=== PATIENT | female | born 2000 | race African-American/Black ===

== ENCOUNTER 2019-06-01 18:16 | Inpatient (IN) ==
[2019-06-01] MEDS ORDERED: MEPERIDINE 50 MG/1 ML VIAL IV PRN (21:02)
[2019-06-01] MEDS ORDERED: ONDANSETRON 4 MG/2 ML VIAL IV PRN (21:02)
[2019-06-01] MEDS ORDERED: BUTORPHANOL 2 MG/ML VIAL IV PRN (21:02)
[2019-06-01 21:31] LABS: Basophils % 0.4 % (0.0-0.8); Eosinophils % 0.5 % (0.00-10.9); Hematocrit 36.1 VOL% (35.7-47.0); Hemoglobin 11.2 GM/DL (12.0-16.0); Immature Granulocytes % 0.4 %; Immature Granulocytes Absolute 0.03 #; Lymphocytes # 1.8 10*3/uL (1.4-4.0); Lymphocytes % 22.8 % (21.3-54.2); Mean Corpuscular Volume 85.1 FL (87-102); Mean Platelet Volume 11.3 FL (9.6-12.0); Monocytes % 9.9 % (1.7-12.7); Platelet Count 328 T/CUMM (130-400); Red Blood Count 4.24 MC/CUMM (3.8-5.5); Red Cell Distribution Width 15.4 % (9.3-17.3); White Blood Count 7.8 T/CUMM (4-12)
[2019-06-01 21:52] LABS: Apearance,Urine CLEAR (Clear); Bilirubin,Urine Negative (Negative); Blood, Urine Negative (Negative); Glucose,Urine (UA) Negative (Negative); Ketones,Urine Negative (Negative); Mucus,Urine Occasional /LPF (Occasional); Nitrite,Urine Negative (Negative); Protein,Urine Negative; Squamous Epithelial Cell,Urine Occasional /HPF (0-10); Urine Color Straw (Yellow); Urine Specific Gravity 1.004 (1.001-1.035); Urine Urobilinogen < 2.0 EU/DL (0.2-1.0)
[2019-06-01 21:55] LABS: Albumin 2.9 G/DL (3.4-5.0); Bilirubin,Total 0.4 MG/DL (0.2-1.0); Calcium 8.9 MG/DL (8.5-10.1); Osmolality,Calculated 270.7 MOS/KG (273-304); Total Protein 7.9 G/DL (6.4-8.3)
[2019-06-01 22:39] LABS: Barbiturates Screen,Urine Negative (Negative); Benzodiazepines Screen,Urine Negative (Negative); Cannabinoid Screen,Urine Negative (Negative); Opiate Screen,Urine Negative (Negative); Phencyclidine Screen,Urine Negative (Negative)
[2019-06-02] MEDS: LACTATED RINGERS 1,000 ML IV SCH ×2 (03:50→07:42)
[2019-06-02] MEDS ORDERED: OXYTOCIN/LR 20 UNIT/1,000 ML BAG IV SCH (04:00)
[2019-06-02] MEDS ORDERED: CITRIC ACID/SODIUM CITRATE 30 ML UDCUP PO ONE (06:12)
[2019-06-02] MEDS ORDERED: diphenhydrAMINE 50 MG/1 ML VIAL IV PRN (06:12)
[2019-06-02] MEDS ORDERED: ePHEDrine 50 MG/ML AMP IV PRN (06:12)
[2019-06-02] MEDS ORDERED: PROMETHAZINE 25 MG/1 ML VIAL IM ONE (06:12)
[2019-06-02] MEDS ORDERED: FAMOTIDINE 20 MG/2 ML VIAL IV ONE (06:12)
[2019-06-02] MEDS ORDERED: NALOXONE 0.4 MG/ML VIAL IV PRN (06:12)
[2019-06-02] MEDS ORDERED: fentaNYL 2 MCG/ROPIV 0.2% EPID 100 ML EPIDURAL SCH (06:30)
[2019-06-02] MEDS ORDERED: LACTATED RINGERS 1,000 ML IV SCH (06:30)
[2019-06-02] MEDS ORDERED: METHYLERGONOVINE 0.2 MG/1 ML AMP ONE (08:26)
[2019-06-02] MEDS ORDERED: TRANEXAMIC ACID 1,000 MG/10 ML VIAL ONE (08:26)
[2019-06-02] MEDS ORDERED: miSOPROStoL 200 MCG TABLET ONE (08:26)
[2019-06-02] MEDS ORDERED: CARBOPROST TROMETHAMINE 250 MCG/ML AMP IM ONE (08:27)
[2019-06-02 08:36] LABS: Apearance,Urine CLEAR (Clear); Bilirubin,Urine Negative (Negative); Blood, Urine Negative (Negative); Glucose,Urine (UA) Negative (Negative); Ketones,Urine Negative (Negative); Nitrite,Urine Negative (Negative); Protein,Urine Negative; RBC,Urine 1 /HPF (0-4); Urine Color Straw (Yellow); Urine Specific Gravity 1.005 (1.001-1.035); Urine Urobilinogen < 2.0 EU/DL (0.2-1.0); WBC,Urine <1 /HPF (0-6)
[2019-06-02 09:10] LABS: Cord Arterial Blood HCO3 22.6 MMOL/L
[2019-06-02 09:11] LABS: Cord Venous Blood HCO3 26.4 MMOL/L; Cord Venous Blood PCO2 49.3 MMHG; Cord Venous Blood PO2 27.2 MMHG
[2019-06-02] MEDS ORDERED: HYDROCORTISONE 2.5% RECTAL CREAM 30 GM TUBE TOP PRN (10:01)
[2019-06-02] MEDS ORDERED: ONDANSETRON 4 MG/2 ML VIAL IV PRN (10:01)
[2019-06-02] MEDS ORDERED: oxyCODONE/ACETAMINOPHEN 5-325 MG TABLET PO PRN ×2 (10:01)
[2019-06-02] MEDS ORDERED: OXYTOCIN/LR 20 UNIT/1,000 ML BAG IV ONE (10:01)
[2019-06-02] MEDS ORDERED: WITCH HAZEL PADS 100/JAR TOP PRN (10:01)
[2019-06-02] MEDS ORDERED: BISACODYL 10 MG SUPP RECTAL PRN (10:01)
[2019-06-02] MEDS ORDERED: MEASLES/MUMPS/RUBELLA VACCINE 0.5 ML VIAL SUBCUT ONE (10:01)
[2019-06-02] MEDS ORDERED: RHO(D) IMMUNE GLOBULIN 300 MCG SYRINGE IM ONE (10:01)
[2019-06-02] MEDS ORDERED: DIPH/TET/ACEL PERT BOOSTER VACCINE 0.5 ML VIAL IM ONE (10:01)
[2019-06-02] MEDS ORDERED: LANOLIN 50% CREAM 0.3 OZ TUBE TOP PRN (10:01)
[2019-06-02] MEDS ORDERED: ACETAMINOPHEN 325 MG TABLET PO PRN (10:01)
[2019-06-02] MEDS ORDERED: BENZOCAINE 20%/MENTHOL 0.5% SPRAY 56 GM CAN TOP PRN (10:01)
[2019-06-02] MEDS ORDERED: IBUPROFEN 800 MG TABLET PO PRN (10:01)
[2019-06-02] MEDS: DOCUSATE SODIUM 100 MG CAPSULE PO SCH (21:01)
[2019-06-03 06:05] LABS: Basophils # 0.1 10*3/uL (0.0-0.2); Basophils % 0.4 % (0.0-0.8); Eosinophils # 0.1 10*3/uL (0.0-0.87); Eosinophils % 0.5 % (0.00-10.9); Hematocrit 31.7 VOL% (35.7-47.0); Immature Granulocytes % 0.3 %; Immature Granulocytes Absolute 0.03 #; Lymphocytes # 2.7 10*3/uL (1.4-4.0); Lymphocytes % 23.6 % (21.3-54.2); Mean Corpuscular HGB Conc 31.5 GM/DL (32-36); Mean Platelet Volume 11.5 FL (9.6-12.0); Monocytes % 8.3 % (1.7-12.7); Neutrophils % 66.9 % (38.7-73.9); Platelet Count 272 T/CUMM (130-400); Red Blood Count 3.73 MC/CUMM (3.8-5.5); Red Cell Distribution Width 15.6 % (9.3-17.3); White Blood Count 11.3 T/CUMM (4-12)
[2019-06-03] MEDS: DOCUSATE SODIUM 100 MG CAPSULE PO SCH ×2 (09:11→21:31)
[2019-06-04 07:15] VITALS: BP 108/62
[2019-06-04] MEDS: DOCUSATE SODIUM 100 MG CAPSULE PO SCH (08:30)
== END 2019-06-04 12:35 | disposition home or self-care (01) | DRG 560 ==
LOC: N.LDOUT 18:16 → N.LD 18:18 → N.OB 06-02 10:57
PROVIDERS: ADMIT Obstetrics & Gynecology; ATTEND Obstetrics & Gynecology